=== PATIENT | female | born 1975 | race Caucasian/White ===

== ENCOUNTER 2017-03-30 12:22 | Emergency (ER) | payer BC, MEDICAID, OTHER ==
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
[2017-03-30 12:59] LABS: ABSOLUTE EOSINOPHILS # (AUTO) 0.3 10^3/uL (0.0-0.6); ABSOLUTE LYMPHOCYTES (AUTO) 2.6 10^3/uL (0.5-4.7); ABSOLUTE MONOCYTES (AUTO) 0.7 10^3/uL (0.1-1.4); ABSOLUTE NEUT (AUTO) 3.1 10^3/uL (1.7-8.2); BASOPHILS % (AUTO) 0.4 % (0-2); EOSINOPHILS % (AUTO) 3.8 % (0-6); HEMATOCRIT 39.5 % (36.0-47.0); HEMOGLOBIN 13.8 g/dL (12.0-15.5); HGB HCT DIFFERENCE 1.9; LYMPHOCYTES % (AUTO) 38.4 % (13-45); MEAN CORPUSCULAR HEMOGLOBIN 29.9 pg (27.0-33.4); MEAN CORPUSCULAR HGB CONC 34.8 g/dL (32.0-36.0); MEAN CORPUSCULAR VOLUME 86 fl (80-97); RED BLOOD COUNT 4.61 10^6/uL (3.72-5.28); RED CELL DISTRIBUTION WIDTH 13.1 % (11.5-14.0); SEGMENTED NEUTROPHILS % (AUTO) 46.4 % (42-78); WHITE BLOOD COUNT 6.7 10^3/uL (4.0-10.5)
[2017-03-30 13:20] LABS: ALANINE AMINOTRANSFERASE 40 U/L (9-52); ALBUMIN 3.6 g/dL (3.5-5.0); ALKALINE PHOSPHATASE 114 U/L (38-126); ANION GAP 11 (5-19); ASPARTATE AMINO TRANSFERASE 30 U/L (14-36); BILIRUBIN,DIRECT 0.3 mg/dL (0.0-0.4); BILIRUBIN,TOTAL 0.5 mg/dL (0.2-1.3); BLOOD UREA NITROGEN 9 mg/dL (7-20); CALCIUM 8.9 mg/dL (8.4-10.2); CARBON DIOXIDE 25 mmol/L (22-30); CHLORIDE 108 mmol/L (98-107); CREATINE KINASE 76 U/L (30-135); CREATININE RESULT 0.56 mg/dL (0.52-1.25); GLUCOSE 92 mg/dL (75-110); LIPASE 80.7 U/L (23-300); POTASSIUM 3.6 mmol/L (3.6-5.0); SODIUM 144.4 mmol/L (137-145); TOTAL PROTEIN 6.9 g/dL (6.3-8.2)
[2017-03-30 13:32] LABS: TROPONIN I < 0.012 ng/mL
--- NOTE | 2017-03-30 14:13 | RADIOLOGY REPORT (SQ) ---
EXAM DESCRIPTION: CHEST PA/LAT COMPLETED DATE/TIME: 03/30/2017 1:51 pm REASON FOR STUDY: cp COMPARISON: None. EXAM PARAMETERS: NUMBER OF VIEWS: two views TECHNIQUE: Digital Frontal and Lateral radiographic views of the chest acquired. RADIATION DOSE: NA LIMITATIONS: none FINDINGS: LUNGS AND PLEURA: No opacities, masses or pneumothorax. No pleural effusion. MEDIASTINUM AND HILAR STRUCTURES: No masses or contour abnormalities. HEART AND VASCULAR STRUCTURES: Heart normal size. No evidence for failure. BONES: No acute findings. HARDWARE: None in the chest. OTHER: No other significant finding. IMPRESSION: NO SIGNIFICANT RADIOGRAPHIC FINDING IN THE CHEST. TECHNICAL DOCUMENTATION: JOB ID: [id number] [employer]- All Rights Reserved
[2017-03-30 14:43] VITALS: BP 135/80
--- NOTE | 2017-03-30 20:26 | EKG REPORT ---
SEVERITY:- BORDERLINE ECG - SINUS ARRHYTHMIA, RATE 52-83 LVH BY VOLTAGE : Confirmed by: Ksenia Hansen MD 30-Mar-2017 20:26:05
== END 2017-03-30 14:46 | disposition home or self-care (01) ==
LOC: ER 12:22
DX: F41.9 Anxiety disorder, unspecified (principal); R07.9 Chest pain, unspecified; R06.02 Shortness of breath; Z88.6 Allergy status to analgesic agent; Z88.0 Allergy status to penicillin
CPT/HCPCS: 36415; 71020; 80053; 82550; 82553; 83690; 84484; 85025; 93005; 93010; 99285

== ENCOUNTER 2018-10-21 19:33 | Emergency (ER) | payer BC ==
[2018-10-21] MEDS ORDERED: LORAZEPAM INJ 2 MG/1 ML VIAL IV ONE (20:11)
[2018-10-21 20:14] LABS: ABSOLUTE EOSINOPHILS # (AUTO) 0.3 10^3/uL (0.0-0.6); ABSOLUTE LYMPHOCYTES (AUTO) 2.8 10^3/uL (0.5-4.7); ABSOLUTE MONOCYTES (AUTO) 0.6 10^3/uL (0.1-1.4); ABSOLUTE NEUT (AUTO) 3.1 10^3/uL (1.7-8.2); BASOPHILS % (AUTO) 0.6 % (0-2); EOSINOPHILS % (AUTO) 4.1 % (0-6); HEMATOCRIT 38.1 % (36.0-47.0); HEMOGLOBIN 12.9 g/dL (12.0-15.5); LYMPHOCYTES % (AUTO) 41.4 % (13-45); MEAN CORPUSCULAR HEMOGLOBIN 29.5 pg (27.0-33.4); MEAN CORPUSCULAR VOLUME 87 fl (80-97); MONOCYTES % (AUTO) 8.8 % (3-13); PLATELET COUNT 296 10^3/uL (150-450); RED BLOOD COUNT 4.38 10^6/uL (3.72-5.28); RED CELL DISTRIBUTION WIDTH 13.4 % (11.5-14.0); SEGMENTED NEUTROPHILS % (AUTO) 45.1 % (42-78); TOTAL CELLS COUNTED % (AUTO) 100 %; WHITE BLOOD COUNT 6.8 10^3/uL (4.0-10.5)
--- NOTE | 2018-10-21 20:32 | RADIOLOGY REPORT (SQ) ---
EXAM DESCRIPTION: XR CHEST 1 VIEW COMPLETED DATE/TME: 10/21/2018 19:54 CLINICAL HISTORY: 43 years, Female, syncope COMPARISON: None. NUMBER OF VIEWS: One TECHNIQUE: Single view of the chest was obtained portably LIMITATIONS: None. FINDINGS: Cardiac and mediastinal contours are normal. Bandlike left basilar opacity is noted. This likely indicates atelectasis or scar. Lungs are otherwise clear. No pleural effusion or pneumothorax. IMPRESSION: No acute disease. copyright 2010 [employer]- All Rights Reserved
[2018-10-21 20:38] LABS: ALANINE AMINOTRANSFERASE 38 U/L (9-52); ALBUMIN 3.7 g/dL (3.5-5.0); ALKALINE PHOSPHATASE 132 U/L (38-126); ANION GAP 9 (5-19); ASPARTATE AMINO TRANSFERASE 28 U/L (14-36); BILIRUBIN,DIRECT 0.3 mg/dL (0.0-0.4); BILIRUBIN,TOTAL 0.5 mg/dL (0.2-1.3); BLOOD UREA NITROGEN 13 mg/dL (7-20); CALCIUM 9.3 mg/dL (8.4-10.2); CARBON DIOXIDE 27 mmol/L (22-30); CHLORIDE 106 mmol/L (98-107); CREATINE KINASE 125 U/L (30-135); GLUCOSE 169 mg/dL (75-110); POTASSIUM 3.9 mmol/L (3.6-5.0); SODIUM 142.4 mmol/L (137-145); TOTAL PROTEIN 7.2 g/dL (6.3-8.2)
[2018-10-21 20:48] LABS: TROPONIN I < 0.012 ng/mL
--- NOTE | 2018-10-21 21:15 | ER Document Report ---
ED General - General Chief Complaint: Passed Out Prior to Arrival Stated Complaint: LEFT SIDE NUMBNESS Time Seen by Provider: 10/21/18 19:49 - HPI Notes: Patient is a 43-year-old female who presents to the emergency department for evaluation. She was visiting family members for Mother's Day celebration today. She states she started to not feel well. She described feeling a "tightness" in the left side of her cheek. She states she went to walk outside and had a syncopal episode. She felt slightly dizzy. She was lowered to the ground. She denies hitting her head, denies any associated chest pain or difficulty breathin g. Patient admits she has been told by her primary care physician that she should probably be on medication for high blood pressure as well as diabetes. She states she is afraid of the possible side effects of these medications. She denies any difficulty seeing, speaking, swallowing. Moving her arms and legs without difficulty. Did have a headache earlier which is now resolved. The tightness in her chest is resolved as well. - Related Data Allergies/Adverse Reactions: oxycodone [From Percocet] Allergy (Mild, Verified 03/30/17 13:28) Penicillins Allergy (Verified 03/30/17 13:28) Past Medical History - General Information source: Patient - Social History Smoking Status: Never Smoker Frequency of alcohol use: None Drug Abuse: None Family History: Reviewed & Not Pertinent, DM, Hypertension Patient has suicidal ideation: No Patient has homicidal ideation: No - Past Medical History Cardiac Medical History: Reports: Hx Hypertension Pulmonary Medical History: Reports: Hx Asthma Endocrine Medical History: Reports: Hx Diabetes Mellitus Type 2 - borderline - currently not on medications Renal/ Medical History: Denies: Hx Peritoneal Dialysis Past Surgical History: Reports: Hx Section, Hx Cholecystectomy, Hx Hysterectomy Review of Systems - Review of Systems Constitutional: No symptoms reported EENT: No symptoms reported Cardiovascular: See HPI Respiratory: No symptoms reported Gastrointestinal: No symptoms reported Genitourinary: No symptoms reported Musculoskeletal: No symptoms reported Skin: No symptoms reported Neurological/Psychological: No symptoms reported Physical Exam - Vital signs Vitals: Temp Pulse Resp BP Pulse Ox 97.9 F 88 20 192/113 H 98 10/21/18 19:36 10/21/18 19:36 10/21/18 19:36 10/21/18 19:36 10/21/18 19:36 - Notes Notes: Vital signs reviewed, please refer to chart. Head is normocephalic, atraumatic. Pupils equal round, reactive to light. Neck is supple without meningismus. Heart is regular rate and rhythm. Lungs are clear to auscultation bilaterally. Abdomen is soft, nontender, normoactive bowel sounds throughout. Extremities without cyanosis, clubbing. Posterior calves are nontender. Peripheral pulses are equal. Skin is warm and dry. Patient is awake, alert, oriented x3. Cranial nerves II through XII are grossly intact without focal neurological deficits. Strength is plus 5 out of 5 bilateral upper and lower extremities. Reflexes symmetrical. Sensation is intact. Intact [id number], rapid altering movements, [id number]. Patient is extremely anxious in appearance. She becomes tearful and we discuss differential diagnosis, possible need for treatment of blood pressure. Course - Re-evaluation Re-evalutation: 10/21/18 21:16 Patient presents to the emergency department for evaluation. She describes a tightness in her left cheek, certainly not a focal neurological deficits that I can identify. She did have a syncopal episode. This patient is extremely anxious, was very hypertensive. She did not believe that she would be able to tolerate the head CT, became even more tearful and anxious. I did go back and reevaluate the patient. I explained to her my reasoning for wanting this test. I explained her that I would like to treat her for anxiety. She was medicated with Ativan 1 mg IV and tolerated the CT without difficulty. Current blood pressure is 148/100. She remained stable, will continue to follow. 10/21/18 21:17 10/21/18 21:49 Patient's blood pressure currently 116/80. She is feeling significantly improved. She had no recurrence of her symptoms. Her CT scan of her head was unremarkable, lab work largely unremarkable. Patient understands the importance of close follow-up. She states she can see her primary care physician this week. We talked at length regarding the need for her blood pressure and borderline diabetes to be addressed as soon as possible. She voiced understanding to the need for this, the possible consequences of not doing so. She understands that any return of her symptoms or any new concerning symptoms should prompt her to return immediately to the ED. Discussion was had with the patient's daughter, , and mother as well. They will state that they will help to ensure follow-up and bring her back to the ED should she develop any new symptoms. - Vital Signs Vital signs: Temp Pulse Resp BP Pulse Ox 97.9 F 88 20 192/113 H 98 10/21/18 19:36 10/21/18 19:36 10/21/18 19:36 10/21/18 19:36 10/21/18 19:36 - Laboratory Result Diagrams: 10/21/18 19:42 10/21/18 19:42 Laboratory results interpreted by me: 10/21/18 10/21/18 19:42 19:50 Glucose 169 H POC Glucose 149 H Alkaline Phosphatase 132 H 10/21/18 21:15 10/21/18 19:42 10/21/18 19:42 MCV 87 fl (80-97) 10/21/18 19:42 MCH 29.5 pg (27.0-33.4) 10/21/18 19:42 MCHC 34.0 g/dL (32.0-36.0) 10/21/18 19:42 RDW 13.4 % (11.5-14.0) 10/21/18 19:42 Seg Neutrophils % 45.1 % (42-78) 10/21/18 19:42 Lymphocytes % 41.4 % (13-45) 10/21/18 19:42 Monocytes % 8.8 % (3-13) 10/21/18 19:42 Eosinophils % 4.1 % (0-6) 10/21/18 19:42 Basophils % 0.6 % (0-2) 10/21/18 19:42 Absolute Neutrophils 3.1 10^3/uL (1.7-8.2) 10/21/18 19:42 Absolute Lymphocytes 2.8 10^3/uL (0.5-4.7) 10/21/18 19:42 Absolute Monocytes 0.6 10^3/uL (0.1-1.4) 10/21/18 19:42 Absolute Eosinophils 0.3 10^3/uL (0.0-0.6) 10/21/18 19:42 Absolute Basophils 0.0 10^3/uL (0.0-0.2) 10/21/18 19:42 Chloride 106 mmol/L (98-107) 10/21/18 19:42 Carbon Dioxide 27 mmol/L (22-30) 10/21/18 19:42 Anion Gap 9 (5-19) 10/21/18 19:42 Est GFR ( Amer) > 60 (>60) 10/21/18 19:42 Est GFR (Non-Af Amer) > 60 (>60) 10/21/18 19:42 Glucose 169 mg/dL (75-110) H 10/21/18 19:42 Calcium 9.3 mg/dL (8.4-10.2) 10/21/18 19:42 Total Bilirubin 0.5 mg/dL (0.2-1.3) 10/21/18 19:42 AST 28 U/L (14-36) 10/21/18 19:42 ALT 38 U/L (9-52) 10/21/18 19:42 Alkaline Phosphatase 132 U/L (38-126) H 10/21/18 19:42 Total Protein 7.2 g/dL (6.3-8.2) 10/21/18 19:42 Albumin 3.7 g/dL (3.5-5.0) 10/21/18 19:42 10/21/18 10/21/18 19:42 19:42 Creatine Kinase 125 CK-MB (CK-2) 0.80 Troponin I < 0.012 - Diagnostic Test Radiology reviewed: Reports reviewed Radiology results interpreted by me: 10/21/18 21:15 Chest X-Ray 10/21/18 19:54 IMPRESSION: No acute disease. copyright 2011 [employer]- All Rights Reserved - EKG Interpretation by Me Additional EKG results interpreted by me: 10/21/18 21:15 Sinus mechanism with a rate of 95 bpm. Normal axis and intervals, no acute ST changes concerning for ischemia or infarction. Discharge - Discharge Clinical Impression: Syncope Qualifiers: Encounter type: initial encounter Condition: Stable Disposition: HOME, SELF-CARE Instructions: Syncopal Episode ([facility]) Additional Instructions: You need to follow-up with your primary care physician this week. You should discuss starting blood pressure medications, discuss possibly needing medication for blood sugar control. If you develop worsening or new concerning symptoms of any sort, return immediately to the emergency department for evaluation. Forms: Elevated Blood Pressure
--- NOTE | 2018-10-21 21:25 | RADIOLOGY REPORT (SQ) ---
EXAM DESCRIPTION: CT HEAD WITHOUT IV CONTRAST COMPLETED DATE/TME: 10/21/2018 19:55 CLINICAL HISTORY: 43 years, Female, left facial "tightness" and syncope COMPARISON: None. TECHNIQUE: Noncontrast CT of the head was performed. Coronal and sagittal reformations were created. Images stored on PACS. All CT scanners at this facility use dose modulation, iterative reconstruction, and/or weight based dosing when appropriate to reduce radiation dose to as low as reasonably achievable (ALARA). [facility]: Dose Right [facility]: CareDose [facility]: Dose Right [facility]: Teradose 4D [facility]: [employer] LIMITATIONS: None. FINDINGS: Brain parenchyma is normal in attenuation. No acute intracranial hemorrhage, mass effect, or extra-axial fluid is seen. The ventricles, sulci, and basilar cisterns are normal in size and configuration. Globes and orbits are normal. Paranasal sinuses and mastoid air cells are clear. There are no depressed skull fractures. IMPRESSION: No acute intracranial abnormality. TECHNICAL DOCUMENTATION: Quality ID # [id number]: Final reports with documentation of one or more dose reduction techniques (e.g., Automated exposure control, adjustment of the mA and/or kV according to patient size, use of iterative reconstruction technique) copyright 2010 [employer]- All Rights Reserved
[2018-10-21 22:20] VITALS: BP 124/88
--- NOTE | 2018-10-22 18:58 | EKG REPORT ---
SEVERITY:- BORDERLINE ECG - SINUS RHYTHM LVH BY VOLTAGE : Confirmed by: Robby Tam MD 22-Oct-2018 18:57:18
== END 2018-10-21 22:20 | disposition home or self-care (01) ==
LOC: ER 19:33
DX: R55 Syncope and collapse (principal); R51 Headache; I10 Essential (primary) hypertension; F41.9 Anxiety disorder, unspecified; R73.03 Prediabetes; Z88.0 Allergy status to penicillin; Z88.5 Allergy status to narcotic agent
CPT/HCPCS: 93005; 99285; 96374; 36415; 82553; 82962; 82550; 85025; 80053; 84484; 71045; 70450; 93010; J2060

== ENCOUNTER 2018-10-22 13:07 | Emergency (ER) | payer BC ==
[2018-10-22] MEDS ORDERED: ACETAMINOPHEN 325 MG TABLET PO ONE (13:26)
[2018-10-22] MEDS ORDERED: ONDANSETRON 4 MG TAB.RAPDIS PO ONE (13:26)
--- NOTE | 2018-10-22 13:28 | ER Document Report ---
ED Medical Screen (RME) - General Chief Complaint: Headache >24 hrs old Stated Complaint: HEADACHE/FACE TINGLING Time Seen by Provider: 10/22/18 13:21 Notes: 43-year-old female presented to ED for elevated blood pressure with headache and facial tendon tingling. She was diagnosed yesterday with her blood pressure got her medicines and just took them just before coming to the emergency room. She states she had headache and tingling and passed out yesterday. She was brought to the emergency room yesterday had blood work and started on medicines she called her primary care doctor today instead of going into see them. They told her to come back to the emergency room. Patient just took the medicine before coming into the emergency room. We will treat her with some Tylenol and Zofran at this time for headache I have greeted and performed a rapid initial assessment of this patient. A comprehensive ED assessment and evaluation of the patient, analysis of test results and completion of medical decision making process will be conducted by an additional ED providers. Dictation of this chart was performed using voice recognition software; therefore, there may be some unintended grammatical errors. TRAVEL OUTSIDE OF THE [place] IN LAST 30 DAYS: No - Related Data Allergies/Adverse Reactions: oxycodone [From Percocet] Allergy (Mild, Verified 10/22/18 13:10) Penicillins Allergy (Verified 10/22/18 13:10) Past Medical History - Past Medical History Cardiac Medical History: Reports: Hx Hypertension Pulmonary Medical History: Reports: Hx Asthma Endocrine Medical History: Reports: Hx Diabetes Mellitus Type 2 - borderline - currently not on medications Renal/ Medical History: Denies: Hx Peritoneal Dialysis Past Surgical History: Reports: Hx Section, Hx Cholecystectomy, Hx Hyst erectomy Physical Exam - Vital signs Vitals: Temp Pulse Resp BP Pulse Ox 98.3 F 77 18 181/110 H 97 10/22/18 13:13 10/22/18 13:13 10/22/18 13:13 10/22/18 13:13 10/22/18 13:13 Course - Vital Signs Vital signs: Temp Pulse Resp BP Pulse Ox 98.3 F 77 18 181/110 H 97 10/22/18 13:13 10/22/18 13:13 10/22/18 13:13 10/22/18 13:13 10/22/18 13:13
[2018-10-22 13:59] LABS: ABSOLUTE EOSINOPHILS # (AUTO) 0.2 10^3/uL (0.0-0.6); ABSOLUTE LYMPHOCYTES (AUTO) 1.8 10^3/uL (0.5-4.7); ABSOLUTE MONOCYTES (AUTO) 0.4 10^3/uL (0.1-1.4); ABSOLUTE NEUT (AUTO) 2.6 10^3/uL (1.7-8.2); BASOPHILS % (AUTO) 0.7 % (0-2); EOSINOPHILS % (AUTO) 3.6 % (0-6); HEMATOCRIT 38.5 % (36.0-47.0); HEMOGLOBIN 12.8 g/dL (12.0-15.5); LYMPHOCYTES % (AUTO) 34.9 % (13-45); MEAN CORPUSCULAR HEMOGLOBIN 28.9 pg (27.0-33.4); MEAN CORPUSCULAR HGB CONC 33.4 g/dL (32.0-36.0); MEAN CORPUSCULAR VOLUME 87 fl (80-97); MONOCYTES % (AUTO) 8.1 % (3-13); PLATELET COUNT 271 10^3/uL (150-450); RED BLOOD COUNT 4.44 10^6/uL (3.72-5.28); RED CELL DISTRIBUTION WIDTH 13.2 % (11.5-14.0); SEGMENTED NEUTROPHILS % (AUTO) 52.7 % (42-78); TOTAL CELLS COUNTED % (AUTO) 100 %
[2018-10-22 14:12] LABS: AMORPHOUS SEDIMENT,URINE TRACE /HPF; APPEARANCE,URINE CLOUDY; BILIRUBIN,URINE NEGATIVE (NEGATIVE); COLOR,URINE YELLOW; GLUCOSE, URINE 50 mg/dL (NEGATIVE); KETONES,URINE NEGATIVE (NEGATIVE); LEUKOCYTE ESTERASE,URINE NEGATIVE (NEGATIVE); NITRITE,URINE NEGATIVE (NEGATIVE); PROTEIN,URINE NEGATIVE (NEGATIVE); URINE SPECIFIC GRAVITY 1.018; UROBILINOGEN,URINE NEGATIVE mg/dL (<2.0)
[2018-10-22 14:15] LABS: ALANINE AMINOTRANSFERASE 36 U/L (9-52); ALBUMIN 3.6 g/dL (3.5-5.0); ALKALINE PHOSPHATASE 99 U/L (38-126); ANION GAP 8 (5-19); ASPARTATE AMINO TRANSFERASE 29 U/L (14-36); BILIRUBIN,DIRECT 0.2 mg/dL (0.0-0.4); BILIRUBIN,TOTAL 0.5 mg/dL (0.2-1.3); BLOOD UREA NITROGEN 12 mg/dL (7-20); CALCIUM 9.6 mg/dL (8.4-10.2); CARBON DIOXIDE 30 mmol/L (22-30); CHLORIDE 105 mmol/L (98-107); GLUCOSE 143 mg/dL (75-110); POTASSIUM 3.8 mmol/L (3.6-5.0); SODIUM 143.2 mmol/L (137-145); TOTAL PROTEIN 7.2 g/dL (6.3-8.2)
[2018-10-22] MEDS ORDERED: HYDRALAZINE HCL 50 MG TABLET PO ONE (15:28)
--- NOTE | 2018-10-22 15:36 | ER Document Report ---
ED Headache - General Chief Complaint: Headache >24 hrs old Stated Complaint: HEADACHE/FACE TINGLING Time Seen by Provider: 10/22/18 13:21 Primary Care Provider: RISA SALMERON PA-C [Primary Care Provider] - Follow up as needed Mode of Arrival: Ambulatory Information source: Patient Notes: Patient is a 43-year-old female who was just diagnosed with hypertension a few days ago, given a prescription for metoprolol but did not start it, was seen here yesterday for uncontrolled hypertension with a headache and a syncopal episode, CT was negative yesterday of the head. Patient was sent home, to call her doctor today, had not taken any of her metoprolol so he advised her to take some, I am unsure why she has not been taking her medication that she was prescribed for hypertension. She took some metoprolol, 25 mg tablet at 11 AM today and is here now with continued headache that she has had all day long with some facial tingling on the left side of her face, no facial droop, no arm or leg symptoms, no weakness anywhere, no nausea, blurred vision or vomiting. Patient denies any chest pain or shortness of breath. She is not a diabetic. She is never had a heart attack or stroke. TRAVEL OUTSIDE OF THE [place] IN LAST 30 DAYS: No - Related Data Allergies/Adverse Reactions: oxycodone [From Percocet] Allergy (Mild, Verified 10/22/18 13:10) Penicillins Allergy (Verified 10/22/18 13:10) Past Medical History - General Information source: Patient - Social History Smoking Status: Never Smoker Chew tobacco use (# tins/day): No Frequency of alcohol use: None Drug Abuse: None Family History: Reviewed & Not Pertinent, DM, Hypertension Patient has suicidal ideation: No Patient has homicidal ideation: No - Past Medical History Cardiac Medical History: Reports: Hx Hypertension Pulmonary Medical History: Reports: Hx Asthma Endocrine Medical History: Reports: Hx Diabetes Mellitus Type 2 - borderline - currently not on medications Renal/ Medical History: Denies: Hx Peritoneal Dialysis Past Surgical History: Reports: Hx Section, Hx Cholecystectomy, Hx Hysterectomy Review of Systems - Review of Systems Constitutional: No symptoms reported EENT: No symptoms reported Cardiovascular: See HPI Respiratory: No symptoms reported Gastrointestinal: No symptoms reported Genitourinary: No symptoms reported Female Genitourinary: No symptoms reported Musculoskeletal: No symptoms reported Skin: No symptoms reported Hematologic/Lymphatic: No symptoms reported Neurological/Psychological: See HPI Physical Exam - Vital signs Vitals: Temp Pulse Resp BP Pulse Ox 98.3 F 77 18 181/110 H 97 10/22/18 13:13 10/22/18 13:13 10/22/18 13:13 10/22/18 13:13 10/22/18 13:13 - Notes Notes: PHYSICAL EXAMINATION: GENERAL: Obese, otherwise well-appearing and in no acute distress. HEAD: Atraumatic, normocephalic. EYES: Pupils equal round and reactive to light, extraocular movements intact, sclera anicteric, conjunctiva are normal. ENT: ear canals without erythema or foreign body, TMs pearly lange with good bony landmarks, nares patent, oropharynx clear without exudates. Moist mucous membranes. NECK: Normal range of motion, supple without lymphadenopathy LUNGS: CTAB and equal. No wheezes rales or rhonchi. HEART: Regular rate and rhythm without murmurs ABDOMEN: Soft, no tenderness. No guarding, no rebound BACK: no vertebral tenderness, normal ROM GI/: no CVA tenderness EXTREMITIES: Normal range of motion, no pitting edema. No cyanosis. NEUROLOGICAL: Cranial nerves grossly intact. Normal sensory/motor exams. PSYCH: Normal mood, normal affect. SKIN: Warm, Dry, normal turgor, no rashes or lesions noted Course - Re-evaluation Re-evalutation: 10/22/18 16:52 CT of the head negative again today, patient's facial tingling completely resolved after her blood pressure came down here with hydralazine. Patient was advised that she should stay on her blood pressure medication and take it as prescribed, I will increase the dose as it was given to her as a 25 mg dose that did not bring her blood pressure down at all today. Patient is advised to follow-up tomorrow with her primary care provider. She is neurologically intact and has no focal deficits. 10/22/18 16:52 - Vital Signs Vital signs: Temp Pulse Resp BP Pulse Ox 97.4 F 75 18 145/97 H 97 10/22/18 16:12 10/22/18 16:12 10/22/18 16:12 10/22/18 16:12 10/22/18 16:12 - Laboratory Result Diagrams: 10/22/18 13:43 10/22/18 13:43 Laboratory results interpreted by me: 10/22/18 10/22/18 13:43 13:43 Glucose 143 H Urine Glucose (UA) 50 H Discharge - Discharge Clinical Impression: Headache Qualifiers: Headache type: other headache syndrome Qualified Code(s): G44.89 - Other headache syndrome HTN (hypertension) Qualifiers: Hypertension type: essential hypertension Qualified Code(s): I10 - Essential (primary) hypertension Condition: Stable Disposition: HOME, SELF-CARE Instructions: High Blood Pressure, Requiring Treatment ([facility]) Additional Instructions: Return immediately for any new or worsening symptoms. Follow up with primary care provider, call tomorrow to make followup appointment. Prescriptions: Metoprolol Succinate [Kapspargo Sprinkle] 50 mg PO DAILY #14 cap.spr.24 Ondansetron [Zofran Odt 4 mg Tablet] 1 - 2 tab PO Q4H PRN #15 tab.rapdis PRN Reason: For Nausea/Vomiting Referrals: RISA SALMERON PA-C [Primary Care Provider] - Follow up as needed
[2018-10-22] MEDS ORDERED: HYDRALAZINE HCL 25 MG TABLET PO ONE (15:38)
[2018-10-22 16:13] VITALS: BP 145/97
--- NOTE | 2018-10-22 16:30 | RADIOLOGY REPORT (SQ) ---
EXAM DESCRIPTION: CT HEAD WITHOUT COMPLETED DATE/TIME: 10/22/2018 4:19 pm REASON FOR STUDY: heath, htn, face tingling COMPARISON: None. TECHNIQUE: Axial images acquired through the brain without intravenous contrast. Images reviewed wi th bone, brain and subdural windows. Additional sagittal and coronal reconstructions were generated. Images stored on PACS. All CT scanners at this facility use dose modulation, iterative reconstruction, and/or weight based d osing when appropriate to reduce radiation dose to as low as reasonably achievable (ALARA). [facility]: Dose Right [facility]: CareDose [facility]: Dose Right [facility]: Teradose 4D [facility]: MediaXstream RADIATION DOSE: CT Rad equipment meets quality standard of care and radiation dose reduction techniq ues were employed. CTDIvol: 53.2 mGy. DLP: 1017 mGy-cm. mGy. LIMITATIONS: None. FINDINGS: VENTRICLES: Normal size and contour. CEREBRUM: No masses. No hemorrhage. No midline shift. No evidence for acute infarction. Normal gra y/white matter differentiation. No areas of low density in the white matter. CEREBELLUM: No masses. No hemorrhage. No alteration of density. No evidence for acute infarction. EXTRAAXIAL SPACES: No fluid collections. No masses. ORBITS AND GLOBE: No intra- or extraconal masses. Normal contour of globe without masses. CALVARIUM: No fracture. PARANASAL SINUSES: No fluid or mucosal thickening. SOFT TISSUES: No mass or hematoma. OTHER: No other significant finding. IMPRESSION: NORMAL BRAIN CT WITHOUT CONTRAST. EVIDENCE OF ACUTE STROKE: NO. COMMENT: Quality ID # [id number]: Final reports with documentation of one or more dose reduction techniques (e.g., Automated exposure control, adjustment of the mA and/or kV according to patient size, use of iterative reconstruction technique) TECHNICAL DOCUMENTATION: JOB ID: [id number] [facility]- All Rights Reserved Reading location - IP/workstation name: [email or web address]
== END 2018-10-22 17:11 | disposition home or self-care (01) ==
LOC: ER 13:07
DX: I10 Essential (primary) hypertension (principal); T44.7X6A Underdosing of beta-adrenoreceptor antagonists, initial encounter; Z91.14 Patient's other noncompliance with medication regimen; G44.89 Other headache syndrome; R20.2 Paresthesia of skin; J45.909 Unspecified asthma, uncomplicated; Z88.5 Allergy status to narcotic agent; Z88.0 Allergy status to penicillin
CPT/HCPCS: 99284; 36415; 85025; 80053; 81001; 70450; S0119